=== PATIENT | female | born 1935 | race Caucasian/White ===

== ENCOUNTER 2019-08-25 09:38 | Emergency (ER) | payer MEDICARE, OTHER ==
[~2019-08-25] VITALS: Ht 157.5 cm; Wt 75.0 kg
[2019-08-25] MEDS ORDERED: MELO-107 PO (10:34)
[2019-08-25] MEDS ORDERED: MEMA28CA PO (10:34)
[2019-08-25] MEDS ORDERED: DONE10TA8 PO (10:34)
[2019-08-25] MEDS ORDERED: FERR-89 PO (10:34)
[2019-08-25] MEDS ORDERED: SERT50TA12 PO (10:34)
[2019-08-25] MEDS ORDERED: FOLI-130 PO (10:34)
[2019-08-25] MEDS ORDERED: TRAZ-257 PO (10:34)
[2019-08-25] MEDS ORDERED: ENAL20 PO (10:34)
[2019-08-25 10:40] LABS: BASOPHILS % (AUTO) 0.3 % (0.0-2.0); EOSINOPHILS % (AUTO) 0.1 % (1.0-6.0); HEMATOCRIT 36.2 % (36-46); HEMOGLOBIN 11.6 g/dL (12.0-16.0); LYMPHOCYTES # (AUTO) 1.9 K/uL (1.0-4.8); LYMPHOCYTES % (AUTO) 15.3 % (22.0-44.0); MEAN CORPUSCULAR HEMOGLOBIN 27.9 pg (26.0-34.0); MEAN CORPUSCULAR VOLUME 87 fL (80-100); MONOCYTES % (AUTO) 8.3 % (2.0-9.0); NEUTROPHILS # (AUTO) 9.4 K/uL (1.8-7.7); PLATELET COUNT (AUTO) 368 K/uL (150-450); RED BLOOD CELL COUNT(AUTO) 4.15 MIL/uL (4.00-5.20); RED CELL DISTRIBUTION WIDTH 15.2 % (11.5-14.5)
[2019-08-25] MEDS ORDERED: SODIUM CHLORIDE 0.9% 100 ML ONE (10:52)
[2019-08-25] MEDS ORDERED: IOVERSOL 350 MG/ML 100 ML VIAL ONE (10:52)
[2019-08-25 10:59] LABS: CALCIUM, TOTAL 7.5 mg/dL (8.8-10.5); CREATININE 1.26 mg/dL (0.60-1.30); POTASSIUM 4.8 mmol/L (3.5-5.1)
[2019-08-25 11:04] LABS: LACTIC ACID 1.9 mmol/L (0.4-2.0)
[2019-08-25 11:11] LABS: BILIRUBIN,TOTAL 0.6 mg/dL (0.1-1.0); TOTAL PROTEIN, SERUM 6.2 g/dL (6.4-8.2)
[2019-08-25 11:20] LABS: TROPONIN I < 0.02 ng/mL (0.00-0.05)
[2019-08-25 11:30] LABS: INR 1.4 (0.9-1.1); PROTHROMBIN TIME 14.5 SEC (9.4-11.6)
[2019-08-25 11:44] LABS: AMMONIA 25 umol/L (11-32)
[2019-08-25 12:06] LABS: GLUCOSE,POINT OF CARE 87 MG/DL (70-110)
[2019-08-25 13:30] LABS: BILIRUBIN,URINE NEGATIVE (NEGATIVE); GLUCOSE, URINE (UA) NEGATIVE (NEGATIVE); KETONES,URINE 15 mg/dL (NEGATIVE); LEUKOCYTE ESTERASE ,URINE NEGATIVE (NEGATIVE); NITRATE,URINE NEGATIVE (NEGATIVE); OCCULT BLOOD,URINE NEGATIVE (NEGATIVE); PH,URINE 7.5 (5.0-8.0); UROBILINOGEN,URINE 0.2 mg/dL (<=1.0)
[2019-08-25] MEDS ORDERED: DEXTROSE 5%-0.45% SODIUM CHL 1,000 ML IV ONE (13:30)
[2019-08-25 13:33] LABS: APPEARANCE,URINE CLEAR (CLEAR); PROTEIN,URINE NEGATIVE (NEGATIVE)
[2019-08-25 13:42] LABS: AMPHET/METH SCREEN,URINE NEGATIVE (NEGATIVE); BARBITURATE SCREEN, URINE NEGATIVE (NEGATIVE); BENZODIAZEPINES SCREEN,URINE NEGATIVE (NEGATIVE); CANNABINOID SCREEN,URINE NEGATIVE (NEGATIVE); COCAINE SCREEN,URINE NEGATIVE (NEGATIVE); METHADONE SCREEN, URINE NEGATIVE (NEGATIVE); OPIATE SCREEN,URINE NEGATIVE (NEGATIVE)
[2019-08-25 13:45] LABS: PHENCYCLIDINE SCREEN,URINE NEGATIVE (NEGATIVE)
[2019-08-25 14:02] LABS: FREE T4 (FREE THYROXINE) 1.51 ng/dL (0.76-1.46); THYROID STIMULATING HORMONE 8.81 uIU/mL (0.36-3.74)
[2019-08-25 17:12] VITALS: BP 127/64
[2019-08-25 17:38] LABS: GLUCOSE,POINT OF CARE 80 MG/DL (70-110)
== END 2019-08-25 18:10 | disposition short-term general hospital (02) ==
LOC: EMS 09:39
DX: S06.5X9A Traumatic subdural hemorrhage with loss of consciousness of unspecified duration, initial encounter (principal); R41.82 Altered mental status, unspecified; E11.9 Type 2 diabetes mellitus without complications; I10 Essential (primary) hypertension; W19.XXXA Unspecified fall, initial encounter; Y93.89 Activity, other specified; Y92.89 Other specified places as the place of occurrence of the external cause; Y99.8 Other external cause status
CPT/HCPCS: 36415; 70450; 71045; 71275; 80053; 80307; 81003; 82140; 82550; 82962; 83605; 83880; 84439; 84443; 84484; 85025; 85610; 87040; 93005; 96360; 96361; 99291; J7050; Q9967; 51702; 96365